=== PATIENT | male | born 1955 | race African-American/Black ===

== ENCOUNTER 2022-12-31 01:49 | Inpatient (IN) | payer MEDICAID, OTHER ==
[~2022-12-31] VITALS: Ht 172.7 cm; Wt 103.9 kg
[2022-12-31] MEDS ORDERED: METF-440 PO (01:59)
[2022-12-31] MEDS ORDERED: ASPI81TA31 PO (02:37)
[2022-12-31] MEDS ORDERED: AMLO10TA59 PO (02:37)
--- NOTE | 2022-12-31 02:50 | NUR ---
Dr. Drew at bedside for MSE.
[2022-12-31] MEDS ORDERED: IV NS 1000 ML 1,000 ML IV ONE ×2 (03:00→04:15)
--- NOTE | 2022-12-31 03:15 | NUR ---
Xray at bedside.
[2022-12-31 03:34] LABS: HEMATOCRIT 51.1 % (36.7-47.1); MEAN CORPUSCULAR HEMOGLOBIN 30.3 uug (23.8-33.4); MEAN CORPUSCULAR VOLUME 90.7 fL (73.0-96.2); PLATELET COUNT (AUTO) 340 K/uL (152-348)
[2022-12-31 03:51] LABS: CREATININE 2.5 mg/dL (0.6-1.3); MAGNESIUM 2.1 mg/dL (1.8-2.4); TOTAL PROTEIN, SERUM 9.3 g/dL (6.4-8.2)
[2022-12-31 04:04] LABS: BILIRUBIN,DIRECT 0.1 mg/dL (0.0-0.2)
[2022-12-31 04:07] LABS: POTASSIUM 7.6 mmol/L (3.5-5.1)
[2022-12-31] MEDS ORDERED: SODIUM POLYSTYRENE SULFONATE 15 G/60 ML LIQUID UDC PO ONE (04:15)
[2022-12-31] MEDS ORDERED: cholesterol pill PO (04:20)
[2022-12-31] MEDS ORDERED: BLOO-1730 MC ×2 (04:41)
--- NOTE | 2022-12-31 05:47 | NUR ---
Called [facility] to page Mercy Morin NP.
--- NOTE | 2022-12-31 05:59 | NUR ---
Dr. Drew on panel call with Mercy Morin NP.
[2022-12-31] MEDS ORDERED: MAGNESIUM HYDROXIDE 30 ML LIQUID UDC PO PRN (06:00)
[2022-12-31] MEDS ORDERED: ACETAMINOPHEN 325 MG TABLET PO PRN (06:00)
[2022-12-31] MEDS ORDERED: REMEDY ESSENTIAL ZINC PASTE 113 GM TP PRN (06:00)
[2022-12-31] MEDS ORDERED: DEXTROSE 50% 50 ML DISP.SYRIN IV PRN (06:00)
[2022-12-31] MEDS ORDERED: ONDANSETRON 4 MG/2 ML VIAL IV PRN (06:00)
[2022-12-31] MEDS ORDERED: IV NS 1000 ML 1,000 ML IV PRN (06:00)
[2022-12-31 06:40] LABS: CREATININE 2.3 mg/dL (0.6-1.3); POTASSIUM 4.6 mmol/L (3.5-5.1)
[2022-12-31] MEDS ORDERED: INSULIN REGULAR, HUMAN 300 UNIT/3 ML VIAL ONE (06:56)
[2022-12-31] MEDS: INSULIN REGULAR, HUMAN 300 UNIT/3 ML VIAL SQ PRN ×4 (07:00→20:39)
--- NOTE | 2022-12-31 07:02 | NUR ---
Report given to Kailey zaldivar.
--- NOTE | 2022-12-31 07:10 | NUR ---
Pt requested to have orange juice, denies hypoglycemia.
[2022-12-31] MEDS: BLOOD SUGAR DIAGNOSTIC 1 EACH STRIP VI SCH ×4 (07:35→20:38)
--- NOTE | 2022-12-31 08:27 | NUR ---
Pt's Iv infiltrated on the Lt FA, removed and pressure dressing applied. Notified animal trainer supervisor for midline insertion, ETA 1 hour.
[2022-12-31] MEDS: ASPIRIN 81 MG TAB.CHEW PO SCH (09:40)
[2022-12-31] MEDS: IV NS 1000 ML 1,000 ML IV PRN ×2 (10:01→23:16)
[2022-12-31 10:41] LABS: CREATININE 2.1 mg/dL (0.6-1.3); POTASSIUM 4.8 mmol/L (3.5-5.1)
--- NOTE | 2022-12-31 11:52 | NUR ---
BLOOD SUGAR: Pt's BS via lab draw was 354 at 1013, 10 units of insulin given. When checked at 1140, BS was 286. Dr. Long said to hold the insulin because 10 units was just given. Will check sugar again at 1630 per orders.
[2022-12-31 12:00] VITALS: BP 102/65
[2022-12-31 16:00] VITALS: BP 103/68
[2022-12-31 20:00] VITALS: BP 112/73
[2023-01-01] VITALS: BP 105/62
[2023-01-01 04:37] VITALS: BP 112/64
[2023-01-01] MEDS: BLOOD SUGAR DIAGNOSTIC 1 EACH STRIP VI SCH ×4 (06:35→20:34)
[2023-01-01 07:08] LABS: HEMATOCRIT 46.2 % (36.7-47.1); MEAN CORPUSCULAR HEMOGLOBIN 30.3 uug (23.8-33.4); MEAN CORPUSCULAR VOLUME 91.1 fL (73.0-96.2); PLATELET COUNT (AUTO) 353 K/uL (152-348)
[2023-01-01 07:40] LABS: CREATININE 1.3 mg/dL (0.6-1.3); MAGNESIUM 1.9 mg/dL (1.8-2.4); PHOSPHOROUS 3.8 mg/dL (2.5-4.9); POTASSIUM 4.8 mmol/L (3.5-5.1)
--- NOTE | 2023-01-01 08:00 | NUR ---
RECEIVED IN BED AWAKE ALERT AND ORIENTED DENIES DISCOMFORTS IVF IN PROGRESS WITH NO S/S OF INFILTERATION ON SITE SEEN BY DR HECK WITH NEW ORDERS AND NOTED.
[2023-01-01] MEDS: INSULIN REGULAR, HUMAN 300 UNIT/3 ML VIAL SQ PRN ×4 (08:05→20:41)
[2023-01-01] MEDS: ASPIRIN 81 MG TAB.CHEW PO SCH (09:21)
--- NOTE | 2023-01-01 10:03 | NUR ---
DEBBY;AND AZAR HERE SEEN PATIENT WITH NEW ORDERS AND NOTED PATIENT IS FOR ULTRA SOUND OF THE KIDNEYS TODAY.
[2023-01-01 11:46] VITALS: BP 112/84
[2023-01-01] MEDS: IV NS 1000 ML 1,000 ML IV PRN (13:42)
[2023-01-01 15:42] VITALS: BP 128/79
[2023-01-01 20:00] VITALS: BP 109/61
--- NOTE | 2023-01-02 02:57 | NUR ---
BLOOD SUGAR: Received report on pt from BC [place] at 1920. Pt was assessed shortly after. Patient denied any pain. Pt requested a sandwich. Pt educated on the need fr Accu-check. Blood sugar was 221. 4 Units of insulin administered. Addendum: 01/02/23 at 0729 by STACY LOPEZ RN pT WEIGHT = 290
[2023-01-02 04:00] VITALS: BP 102/63
[2023-01-02] MEDS: IV NS 1000 ML 1,000 ML IV PRN (04:20)
[2023-01-02] MEDS: BLOOD SUGAR DIAGNOSTIC 1 EACH STRIP VI SCH ×4 (06:29→20:18)
[2023-01-02 07:20] LABS: THYROID STIMULATING HORMONE 1.352 mIU/mL (0.358-3.740)
[2023-01-02] MEDS: INSULIN REGULAR, HUMAN 300 UNIT/3 ML VIAL SQ PRN ×4 (07:54→20:25)
[2023-01-02] MEDS: ASPIRIN 81 MG TAB.CHEW PO SCH (08:16)
[2023-01-02 09:57] LABS: CREATININE 1.1 mg/dL (0.6-1.3); MAGNESIUM 1.7 mg/dL (1.8-2.4); PHOSPHOROUS 3.7 mg/dL (2.5-4.9); POTASSIUM 4.8 mmol/L (3.5-5.1)
--- NOTE | 2023-01-02 10:10 | NUR ---
PT IV IS BEEPING TRY TO FLUSH THE MIDLINE IS NOT FLUSHING REMOVE THE MIDLINE PER MD ORDERS,NO SWELLING NOTED MD NOTIFIED
[2023-01-02 11:58] VITALS: BP 112/83
[2023-01-02] MEDS ORDERED: MAGNESIUM OXIDE 400 MG TABLET PO ONE (14:30)
[2023-01-02 16:36] VITALS: BP 115/64
--- NOTE | 2023-01-02 16:47 | NUR ---
RECEIVED IN BED AWAKE ALERT AND ORIENTED DENIES DISCOMFORTS IVF IN PROGRESS WITH NO S/S OF INFILTRATION CALL LIGHT WITH IN REACH ,WILL CONTINUE TO MONITORS
--- NOTE | 2023-01-02 16:54 | NUR ---
PT BLOOD SUGAR IS 261 PER SCALE 6 UNIT OF INSULIN GIVEN
--- NOTE | 2023-01-02 17:50 | NUR ---
pt eat his dinner and resting at this time in his bed call light with in reach
[2023-01-02 19:15] LABS: *BILIRUBIN,URIN NEGATIVE (NEGATIVE); *BLOOD, URINE NEGATIVE (NEGATIVE); *CLARITY,URINE CLEAR (CLEAR); *COLOR,URINE YELLOW (YELLOW); *KETONES,URINE NEGATIVE (NEGATIVE); LEUKOCYTE ESTERASE ,URINE NEGATIVE (NEGATIVE); NITRITE, URINE NEGATIVE (NEGATIVE); PH,URINE 5.5 (5.0-8.0)
[2023-01-02 19:16] LABS: UGLUCOSE 3+ (NEGATIVE)
[2023-01-02 21:37] VITALS: BP 131/81
--- NOTE | 2023-01-03 05:22 | NUR ---
PAtient rested well in between care; no acute distress; accucheck as charted; HS snacks given; per day shift, ok to have no IVHL, INCOME TAX ADJUSTER aware; pt had shower as well;
[2023-01-03] MEDS: BLOOD SUGAR DIAGNOSTIC 1 EACH STRIP VI SCH ×2 (06:16→11:38)
[2023-01-03 06:25] LABS: CREATININE 1.2 mg/dL (0.6-1.3); POTASSIUM 4.6 mmol/L (3.5-5.1)
[2023-01-03 08:00] VITALS: BP 118/71
--- NOTE | 2023-01-03 08:00 | NUR ---
Received pt. lying in bed awake, alert and oriented. No IV site, no complain, no SOB on room air saturating at 96%. Vital signs are normal. Observed accordingly
[2023-01-03] MEDS: INSULIN REGULAR, HUMAN 300 UNIT/3 ML VIAL SQ PRN ×2 (08:10→11:41)
[2023-01-03] MEDS: ASPIRIN 81 MG TAB.CHEW PO SCH (08:48)
[2023-01-03] MEDS ORDERED: SITA50TA PO (10:27)
--- NOTE | 2023-01-03 11:00 | NUR ---
Seen and examined by Aniceto Morin NP with order fro discharge
--- NOTE | 2023-01-03 11:55 | NUR ---
Accu check done, medications given and recorded. No complain
[2023-01-03 12:00] VITALS: BP 140/92
--- NOTE | 2023-01-03 12:24 | NUR ---
Prepared discharge summary given and instructed to patient. No IV catheter. Vital signs normal at this time Answered all questions. Patient verbalized understanding Assisted patient going down with wheel chair Discharged properly at 1230H
== END 2023-01-03 12:30 | disposition home or self-care (01) | DRG 683 ==
LOC: ER 01:49 → TELE3 08:18 → MEDSURG3 01-01 10:00
PROVIDERS: ADMIT Nurse Practitioner Acute Care; ATTEND Nurse Practitioner Acute Care
PROC: 05HA33Z Insertion of Infusion Device into Left Brachial Vein, Percutaneous Approach (ICD-10-PCS; principal; 2022-12-31)
PROC: 05H933Z Insertion of Infusion Device into Right Brachial Vein, Percutaneous Approach (ICD-10-PCS; 2023-01-02)
DX: N17.0 Acute kidney failure with tubular necrosis (principal); E87.1 Hypo-osmolality and hyponatremia; E11.65 Type 2 diabetes mellitus with hyperglycemia; E87.5 Hyperkalemia; E66.01 Morbid (severe) obesity due to excess calories; Z68.34 Body mass index [BMI] 34.0-34.9, adult; R06.09 Other forms of dyspnea; I10 Essential (primary) hypertension; Z79.84 Long term (current) use of oral hypoglycemic drugs; E86.9 Volume depletion, unspecified; E78.5 Hyperlipidemia, unspecified
CPT/HCPCS: 36415; 71045; 76770; 83605; 83735; 83935; 84100; 84300; 84443; 84484; 84550; 85025; 93005; A4663; G0378; J1815; J7040

== ENCOUNTER 2025-03-01 00:48 | Inpatient (IN) | payer MEDICARE, OTHER ==
[~2025-03-01] VITALS: Ht 172.7 cm; Wt 131.5 kg
[~2025-03-01 00:48] MED LIST: AMLO10TA59 PO; ASPI81TA31 PO; BLOO-1730 MC; METF-440 PO; SITA50TA PO; cholesterol pill PO
[2025-03-01] MEDS ORDERED: ONDANSETRON 4 MG/2 ML VIAL ONE (01:46)
[2025-03-01] MEDS ORDERED: MORPHINE SULFATE 4 MG/1 ML DISP.SYRIN ONE ×3 (01:47→06:02)
[2025-03-01] MEDS: MORPHINE SULFATE 2 MG/1 ML DISP.SYRIN IV ONE (01:52)
[2025-03-01] MEDS: ONDANSETRON 4 MG/2 ML VIAL IV ONE (01:52)
[2025-03-01] MEDS: IV NORMAL SALINE 1000 ML BAG IV ONE (01:52)
[2025-03-01 02:07] LABS: PLATELET COUNT (AUTO) 254 K/uL (152-348); RED BLOOD CELL COUNT(AUTO) 4.94 MIL/uL (4.06-5.63); RED CELL DISTRIBUTION WIDTH 13.9 % (12.1-16.2); WHITE BLOOD COUNT (AUTO) 12.4 K/uL (3.6-10.2)
[2025-03-01 02:08] LABS: CREATININE 1.5 mg/dL (0.6-1.3); SODIUM SERUM 138.0 mmol/L (136-145); UREA NITROGEN, BLOOD 17.0 mg/dL (7-18)
[2025-03-01 02:15] LABS: ASPARTATE AMINOTRANSFERASE 24.0 U/L (15-37); TOTAL PROTEIN, SERUM 8.5 g/dL (6.4-8.2)
[2025-03-01] MEDS ORDERED: PIPERACILLIN/TAZO 4.5 GM VIAL IV ONE (03:30)
[2025-03-01] MEDS: MORPHINE SULFATE 4 MG/1 ML DISP.SYRIN IV ONE (03:37)
[2025-03-01] MEDS: PIPERACILLIN SODIUM/TAZOBACTAM 4.5 G in IV DEXTROSE 5% 50 ML IV SCH (03:47)
[2025-03-01] MEDS ORDERED: ONDANSETRON 4 MG/2 ML VIAL IV PRN (04:15)
[2025-03-01] MEDS ORDERED: DEXTROSE 50% 50 ML DISP.SYRIN IV PRN (04:15)
[2025-03-01] MEDS: MORPHINE SULFATE 4 MG/1 ML DISP.SYRIN IM PRN (06:06)
[2025-03-01] MEDS: BLOOD SUGAR DIAGNOSTIC 1 EACH STRIP VI SCH (06:12)
[2025-03-01 08:31] VITALS: BP 107/78; TEMP 97.9; O2SAT 95
[2025-03-01] MEDS: PANTOPRAZOLE SODIUM 40 MG VIAL IV SCH (09:35)
[2025-03-01] MEDS: IV LACTATED RINGERS SOLUTION 1,000 ML IV SCH (09:45)
[2025-03-01] MEDS ORDERED: LORA0.5T48 PO (11:22)
[2025-03-01] MEDS ORDERED: LISI40TA13 PO (11:23)
[2025-03-01] MEDS ORDERED: PIPERACILLIN SODIUM/TAZOBACTAM 3.375 G in IV DEXTROSE 5% 50 ML IV SCH (11:30)
[2025-03-01 11:31] VITALS: BP 123/76; TEMP 98.2; O2SAT 95
[2025-03-01] MEDS ORDERED: TRIA1TAB3 PO (11:32)
[2025-03-01] MEDS: PIPERACILLIN SODIUM/TAZOBACTAM 3.375 G in IV DEXTROSE 5% 100 ML IV SCH (12:19)
[2025-03-01] MEDS ORDERED: BUPIVACAINE/EPI PF 0.25% 10 ML VIAL IJ ONE (13:02)
[2025-03-01] MEDS ORDERED: LIDOCAINE HCL 1% 20 ML VIAL ONE (13:02)
[2025-03-01] MEDS ORDERED: FENTANYL CITRATE 250 MCG/5 ML AMPUL ONE (13:07)
[2025-03-01] MEDS ORDERED: ROCURONIUM BROMIDE 50 MG/5 ML VIAL ONE (13:08)
[2025-03-01] MEDS: INSULIN REGULAR, HUMAN 1000 UNIT/10 ML VIAL SQ PRN (17:37)
[2025-03-01 19:00] VITALS: BP 110/66; TEMP 99.2; O2SAT 94
[2025-03-02] MEDS: IV LACTATED RINGERS SOLUTION 1,000 ML IV SCH (03:32)
[2025-03-02 06:00] VITALS: BP 119/68; TEMP 98.7; O2SAT 94
[2025-03-02 07:23] LABS: PLATELET COUNT (AUTO) 249 K/uL (152-348); RED BLOOD CELL COUNT(AUTO) 4.40 MIL/uL (4.06-5.63); RED CELL DISTRIBUTION WIDTH 14.3 % (12.1-16.2); WHITE BLOOD COUNT (AUTO) 17.1 K/uL (3.6-10.2)
[2025-03-02 07:28] LABS: CREATININE 1.7 mg/dL (0.6-1.3); SODIUM SERUM 142.0 mmol/L (136-145); UREA NITROGEN, BLOOD 18.0 mg/dL (7-18)
[2025-03-02 11:30] VITALS: BP 119/76; TEMP 97.8; O2SAT 96
[2025-03-02 15:51] VITALS: BP 124/73; TEMP 98.3; O2SAT 95
[2025-03-02 19:00] VITALS: BP 113/72; TEMP 98.4; O2SAT 97
[2025-03-02] MEDS ORDERED: DEXTROSE 50% 50 ML DISP.SYRIN IV PRN (21:00)
[2025-03-02] MEDS: BLOOD SUGAR DIAGNOSTIC 1 EACH STRIP VI SCH (21:17)
[2025-03-02] MEDS: INSULIN REGULAR, HUMAN 1000 UNIT/10 ML VIAL SQ PRN (21:18)
[2025-03-03] MEDS ORDERED: MORPHINE SULFATE 4 MG/1 ML DISP.SYRIN IV PRN (05:15)
[2025-03-03 06:00] VITALS: BP 131/95; TEMP 98.3; O2SAT 97
[2025-03-03] MEDS: PANTOPRAZOLE SODIUM 40 MG TABLET.DR PO SCH (06:30)
[2025-03-03 09:31] LABS: PLATELET COUNT (AUTO) 254 K/uL (152-348); RED BLOOD CELL COUNT(AUTO) 4.44 MIL/uL (4.06-5.63); RED CELL DISTRIBUTION WIDTH 14.0 % (12.1-16.2); WHITE BLOOD COUNT (AUTO) 11.5 K/uL (3.6-10.2)
[2025-03-03 09:42] LABS: CREATININE 1.5 mg/dL (0.6-1.3); SODIUM SERUM 139.0 mmol/L (136-145); UREA NITROGEN, BLOOD 18.0 mg/dL (7-18)
[2025-03-03] MEDS ORDERED: AMOX-430 PO (11:13)
[2025-03-03 11:30] VITALS: BP 109/69; TEMP 98.8; O2SAT 95
[2025-03-03] MEDS: ACETAMINOPHEN 325 MG TABLET PO PRN (13:01)
[2025-03-03 14:00] VITALS: TEMP 98.9
== END 2025-03-03 14:05 | disposition home or self-care (01) | DRG 398 ==
LOC: ER 00:53 → MEDSURG3 07:49
PROVIDERS: ATTEND Nurse Practitioner Acute Care
PROC: 05HC33Z Insertion of Infusion Device into Left Basilic Vein, Percutaneous Approach (ICD-10-PCS; 2025-03-01)
PROC: 0DTJ4ZZ Resection of Appendix, Percutaneous Endoscopic Approach (ICD-10-PCS; principal; 2025-03-01 13:00)
DX: K35.891 Other acute appendicitis without perforation, with gangrene (principal); Z68.41 Body mass index [BMI] 40.0-44.9, adult; E11.65 Type 2 diabetes mellitus with hyperglycemia; D72.829 Elevated white blood cell count, unspecified; E78.5 Hyperlipidemia, unspecified; J44.9 Chronic obstructive pulmonary disease, unspecified; E11.22 Type 2 diabetes mellitus with diabetic chronic kidney disease; I12.9 Hypertensive chronic kidney disease with stage 1 through stage 4 chronic kidney disease, or unspecified chronic kidney disease; N18.9 Chronic kidney disease, unspecified; Z79.84 Long term (current) use of oral hypoglycemic drugs; E66.01 Morbid (severe) obesity due to excess calories
CPT/HCPCS: 36415; 83690; 83735; 84100; 84443; 85025; A4663; G0378; J1815; J2270; J2405; J2470; J2543; J3010; J3490; J7040; J7120